=== PATIENT | male | born 1970 | race Two or more races ===

== ENCOUNTER 2021-09-15 03:08 | Inpatient (IN) | payer BC, OTHER ==
[~2021-09-15] VITALS: Ht 177.8 cm; Wt 121.4 kg
[2021-09-15 04:11] LABS: Basophils # (auto) 0 10 ^3/uL (0-0.2); Hematocrit 41.8 % (41.0-53.0); Lymphocytes # (auto) 0.9 10 ^3/uL (0.4-5.4); Monocytes # (auto) 0.3 10 ^3/uL (0-1.3); Monocytes % (auto) 4.2 % (0.0-12.0); Neutrophils # (auto) 5.9 10 ^3/uL (1.6-8.6); Nucleated Red Blood Cells % 0.1 %; Red Cell Distribution Width 15.3 % (11.8-14.3)
[2021-09-15 04:13] LABS: Basophils % (auto) 0.5 % (0.0-2.0); Eosinophils # (auto) 0.2 10 ^3/uL (0-0.8); Eosinophils % (auto) 2.2 % (0.0-7.0); Hemoglobin 13.5 g/dL (13.5-17.5); Lymphocytes % (auto) 12.4 % (10.0-50.0); Mean Corpuscular Hemoglobin 24.6 pg (28.0-32.0); Mean Corpuscular Hgb Conc. 32.3 g/dL (32.0-36.0); Mean Corpuscular Volume 76.3 fL (80.0-100.0); Neutrophils % (auto) 80.7 % (37.0-80.0); Red Blood Cells 5.47 10^6/uL (4.5-5.90); White Blood Cell 7.4 10^3/uL (4.4-10.8)
[2021-09-15 04:22] LABS: Albumin 3.8 g/dL (3.4-5.0); Calcium 8.4 mg/dL (8.5-10.1); Magnesium 3.2 mg/dL (1.6-2.6); Potassium 3.5 mmol/L (3.5-5.1)
[2021-09-15 04:28] LABS: BUN/Creatinine Ratio 15.1; Bilirubin, Total 0.4 mg/dL (0.2-1.0); Total Protein 6.8 g/dL (6.4-8.2)
[2021-09-15] MEDS ORDERED: IOHEXOL 350 MG/ML 100ML IJ ONE (04:50)
[2021-09-15 04:54] LABS: INR 1.08 (0.9-1.15); Partial Thromboplastin Time 26.4 sec (23.6-33.0)
[2021-09-15] MEDS ORDERED: NITROGLYCERIN 0.4MG/HR TOPICAL PATCH TD ONE (05:00)
[2021-09-15] MEDS ORDERED: METOPROLOL TARTRATE 1MG/1ML-5ML VIAL IV ONE (05:00)
[2021-09-15] MEDS ORDERED: ENOXAPARIN SOD 120 MG/0.8 ML SYRINGE SC ONE (05:00)
[2021-09-15 05:03] LABS: Urine Bacteria FEW /hpf (None Seen); Urine Blood Negative /uL (Negative); Urine Hyaline Cast FEW /lpf (0 - 2); Urine Mucus FEW (None Seen); Urine Specific Gravity 1.008 (1.001-1.035); Urine WBC 2 /hpf (0 - 3)
[2021-09-15] MEDS ORDERED: ONDANSETRON HCL 4 MG/2 ML VIAL IV PRN ×2 (06:00→13:15)
[2021-09-15] MEDS: D5W/SOD CHLO 0.9% 1,000 ML IV SCH ×2 (06:30→21:24)
[2021-09-15] MEDS: ASPirin 81 mg TAB PO SCH (09:44)
[2021-09-15] MEDS: METOPROLOL SUCCINATE XL 50 MG TAB PO SCH (09:45)
[2021-09-15] MEDS: cloNIDine HCL 0.1 MG TAB PO SCH ×2 (09:48→22:00)
[2021-09-15] MEDS ORDERED: ENOXAPARIN SOD 40 MG/0.4 ML SYRINGE SC SCH (10:00)
[2021-09-15] MEDS ORDERED: LISINOPRIL 20 MG TAB PO ONE (13:00)
[2021-09-15] MEDS: MORPHINE SULFATE 4 MG/ML SYR/VIAL IV PRN (13:42)
[2021-09-15] MEDS ORDERED: IODIXANOL 320MG/ML 100ML BTL IV ONE (15:17)
[2021-09-15] MEDS ORDERED: LIDOCAINE 2%HCL (LOCAL ANESTH.) INJ 20ML MDV ONE (15:17)
[2021-09-15] MEDS ORDERED: ANGIOMAX 250 MG VIAL IV ONE (15:18)
[2021-09-15] MEDS ORDERED: SODIUM CHL 0.9% 0 ML ONE (15:18)
[2021-09-15] MEDS ORDERED: MIDAZOLAM HCL 2MG/2ML 2ml VIAL (1mg/ml) ONE (15:18)
[2021-09-15] MEDS ORDERED: fentaNYL CITRATE 100 MCG/2 ML VL ONE (15:18)
[2021-09-15] MEDS ORDERED: NITROGLYCERIN 0.4MG/DOSE SPRAY 4.9GM ONE (15:57)
[2021-09-15] MEDS: hydrALAZINE HCL 20 MG/ML VL IV PRN (16:55)
[2021-09-15 18:30] VITALS: BP 152/93
[2021-09-15] MEDS ORDERED: METO25TA93 PO (21:34)
[2021-09-15] MEDS ORDERED: CLON0.2T PO (21:34)
[2021-09-15] MEDS: SODIUM CHLOR 0.9% PF (SALINE LOCK) 10ML VIAL/SYR IV SCH (21:59)
[2021-09-15 22:00] VITALS: BP 166/99
[2021-09-15] MEDS: ENOXAPARIN SOD 120 MG/0.8 ML SYRINGE SC SCH (22:01)
[2021-09-15] MEDS: SACUBITRIL-VALSARTAN 24mg/26mg TAB PO SCH (22:01)
[2021-09-15] MEDS: ATORVASTATIN 20 MG TAB PO SCH (22:01)
[2021-09-16 04:00] VITALS: BP 146/76
[2021-09-16] MEDS: SODIUM CHLOR 0.9% PF (SALINE LOCK) 10ML VIAL/SYR IV SCH ×3 (05:33→21:41)
[2021-09-16] MEDS: D5W/SOD CHLO 0.9% 1,000 ML IV SCH (05:45)
[2021-09-16 07:18] LABS: Basophils # (auto) 0 10 ^3/uL (0-0.2); Eosinophils # (auto) 0.4 10 ^3/uL (0-0.8); Hemoglobin 13.9 g/dL (13.5-17.5); Mean Corpuscular Volume 76.2 fL (80.0-100.0); Neutrophils # (auto) 5.6 10 ^3/uL (1.6-8.6)
[2021-09-16 07:23] LABS: Basophils % (auto) 0.4 % (0.0-2.0); Eosinophils % (auto) 5.1 % (0.0-7.0); Hematocrit 42.6 % (41.0-53.0); Lymphocytes # (auto) 1.4 10 ^3/uL (0.4-5.4); Lymphocytes % (auto) 17.5 % (10.0-50.0); Mean Corpuscular Hemoglobin 24.9 pg (28.0-32.0); Mean Corpuscular Hgb Conc. 32.7 g/dL (32.0-36.0); Monocytes # (auto) 0.8 10 ^3/uL (0-1.3); Monocytes % (auto) 9.4 % (0.0-12.0); Neutrophils % (auto) 67.6 % (37.0-80.0); Nucleated Red Blood Cells % 0.1 %; Red Blood Cells 5.59 10^6/uL (4.5-5.90); White Blood Cell 8.2 10^3/uL (4.4-10.8)
[2021-09-16 07:45] LABS: Albumin 3.5 g/dL (3.4-5.0); BUN/Creatinine Ratio 11.8; Bilirubin, Total 0.8 mg/dL (0.2-1.0); Calcium 8.4 mg/dL (8.5-10.1); Total Protein 6.8 g/dL (6.4-8.2)
[2021-09-16 08:20] VITALS: BP 157/108
[2021-09-16] MEDS: cloNIDine HCL 0.1 MG TAB PO SCH ×2 (09:46→21:44)
[2021-09-16] MEDS: SACUBITRIL-VALSARTAN 24mg/26mg TAB PO SCH ×2 (09:46→21:44)
[2021-09-16] MEDS: METOPROLOL SUCCINATE XL 50 MG TAB PO SCH (09:47)
[2021-09-16] MEDS: ASPirin 81 mg TAB PO SCH (09:47)
[2021-09-16] MEDS: ENOXAPARIN SOD 120 MG/0.8 ML SYRINGE SC SCH ×2 (09:48→21:45)
[2021-09-16] MEDS ORDERED: LISINOPRIL 20 MG TAB PO SCH (10:00)
[2021-09-16 12:20] VITALS: BP 136/86
[2021-09-16 16:35] VITALS: BP 142/96
[2021-09-16] MEDS: ATORVASTATIN 20 MG TAB PO SCH (21:45)
[2021-09-16 22:00] VITALS: BP 157/106
[2021-09-17] MEDS: D5W/SOD CHLO 0.9% 1,000 ML IV SCH (04:12)
[2021-09-17 05:00] VITALS: BP 180/87
[2021-09-17] MEDS: hydrALAZINE HCL 20 MG/ML VL IV PRN (06:02)
[2021-09-17] MEDS: SODIUM CHLOR 0.9% PF (SALINE LOCK) 10ML VIAL/SYR IV SCH (06:03)
[2021-09-17] MEDS: NITROGLYCERIN 0.4 MG SL TAB SL PRN ×2 (07:05→07:10)
[2021-09-17] MEDS: MORPHINE SULFATE 4 MG/ML SYR/VIAL IV PRN (07:05)
[2021-09-17 07:15] VITALS: BP 117/75
[2021-09-17 08:00] VITALS: BP 144/96
[2021-09-17] MEDS: cloNIDine HCL 0.1 MG TAB PO SCH (09:47)
[2021-09-17] MEDS: SACUBITRIL-VALSARTAN 24mg/26mg TAB PO SCH (09:47)
[2021-09-17] MEDS: ENOXAPARIN SOD 120 MG/0.8 ML SYRINGE SC SCH (09:48)
[2021-09-17] MEDS: ASPirin 81 mg TAB PO SCH (09:48)
[2021-09-17] MEDS: METOPROLOL SUCCINATE XL 50 MG TAB PO SCH (09:48)
[2021-09-17] MEDS ORDERED: SACU1TAB PO (11:37)
[2021-09-17] MEDS ORDERED: ASPI-498 OR (11:37)
[2021-09-17] MEDS ORDERED: ATO40T PO (11:37)
[2021-09-17] MEDS ORDERED: METO-6 PO (11:39)
[2021-09-17 12:00] VITALS: BP 141/88
[2021-09-17 12:33] VITALS: BP 141/88
== END 2021-09-17 13:30 | disposition home or self-care (01) | DRG 280 ==
LOC: ER 03:08 → EDBD 03:08 → TELE 05:50 → TELE-WESTW 17:50
PROVIDERS: ADMIT Nurse Practitioner; ATTEND Family Medicine
PROC: 4A023N7 Measurement of Cardiac Sampling and Pressure, Left Heart, Percutaneous Approach (ICD-10-PCS; principal; 2021-09-15)
PROC: B211YZZ Fluoroscopy of Multiple Coronary Arteries using Other Contrast (ICD-10-PCS; 2021-09-15)
PROC: B215YZZ Fluoroscopy of Left Heart using Other Contrast (ICD-10-PCS; 2021-09-15)
DX: I21.4 Non-ST elevation (NSTEMI) myocardial infarction (principal); I50.31 Acute diastolic (congestive) heart failure; I47.1 Supraventricular tachycardia; E27.8 Other specified disorders of adrenal gland; I27.20 Pulmonary hypertension, unspecified; E66.01 Morbid (severe) obesity due to excess calories; I11.0 Hypertensive heart disease with heart failure; I48.91 Unspecified atrial fibrillation; Z20.822 Contact with and (suspected) exposure to COVID-19; Z68.38 Body mass index [BMI] 38.0-38.9, adult; Z86.711 Personal history of pulmonary embolism; Z86.718 Personal history of other venous thrombosis and embolism; Z79.01 Long term (current) use of anticoagulants; Z88.5 Allergy status to narcotic agent
CPT/HCPCS: 36415; 71045; 71275; 80053; 81001; 83735; 83880; 84484; 85025; 85610; 85730; 87426; 93005; 93306; 93458; 96365; 96372; 99152; 99291; G0378; J2250; J2405; J7042; Q9967

== ENCOUNTER 2021-10-04 05:45 | Inpatient (IN) | payer BC ==
[~2021-10-04] VITALS: Ht 177.8 cm; Wt 116.1 kg
[~2021-10-04 05:45] MED LIST: ASPI-498 OR; ATO40T PO; CLON0.2T PO; METO-6 PO; METO25TA93 PO; SACU1TAB PO
[2021-10-04 06:12] LABS: Basophils # (auto) 0 10 ^3/uL (0-0.2); Eosinophils # (auto) 0.3 10 ^3/uL (0-0.8); Hemoglobin 13.7 g/dL (13.5-17.5); Lymphocytes # (auto) 0.9 10 ^3/uL (0.4-5.4); Mean Corpuscular Volume 77.6 fL (80.0-100.0); Monocytes # (auto) 0.4 10 ^3/uL (0-1.3); Neutrophils # (auto) 4.7 10 ^3/uL (1.6-8.6); Red Cell Distribution Width 16.9 % (11.8-14.3)
[2021-10-04 06:13] LABS: Basophils % (auto) 0.6 % (0.0-2.0); Eosinophils % (auto) 4.2 % (0.0-7.0); Hematocrit 40.1 % (41.0-53.0); Lymphocytes % (auto) 14.2 % (10.0-50.0); Mean Corpuscular Hemoglobin 26.6 pg (28.0-32.0); Mean Corpuscular Hgb Conc. 34.2 g/dL (32.0-36.0); Monocytes % (auto) 5.7 % (0.0-12.0); Neutrophils % (auto) 75.3 % (37.0-80.0); Red Blood Cells 5.16 10^6/uL (4.5-5.90); White Blood Cell 6.2 10^3/uL (4.4-10.8)
[2021-10-04 06:25] LABS: Albumin 3.7 g/dL (3.4-5.0); Potassium 3.2 mmol/L (3.5-5.1)
[2021-10-04 06:31] LABS: BUN/Creatinine Ratio 14.7; Bilirubin, Total 0.5 mg/dL (0.2-1.0); Total Protein 6.4 g/dL (6.4-8.2)
[2021-10-04] MEDS ORDERED: SODIUM CHLORIDE 0.9% 1,000 ML IV ONE (06:45)
[2021-10-04 07:05] LABS: Urine Amorphous Crystal FEW /hpf (None Seen); Urine Bacteria FEW /hpf (None Seen); Urine Blood Negative /uL (Negative); Urine Hyaline Cast FEW /lpf (0 - 2); Urine Mucus FEW (None Seen); Urine Specific Gravity 1.005 (1.001-1.035); Urine WBC 5 /hpf (0 - 3)
[2021-10-04 07:06] LABS: INR 1.1 (0.9-1.15); Partial Thromboplastin Time 25.9 sec (23.6-33.0)
[2021-10-04] MEDS ORDERED: POTASSIUM EFFERVESENT TAB 25 MEQ PO ONE (07:15)
[2021-10-04] MEDS ORDERED: MORPHINE SULFATE INJECTION 2 MG/ML SYRG IV PRN (10:15)
[2021-10-04] MEDS ORDERED: ONDANSETRON HCL 4 MG/2 ML VIAL IV PRN (10:15)
[2021-10-04] MEDS ORDERED: FAMOTIDINE (10MG/ML) 2ML VL IV ONE (10:15)
[2021-10-04] MEDS ORDERED: IPRATROPIUM BROM 0.5 MG/2.5ML INH SOL NEB ONE (10:15)
[2021-10-04] MEDS ORDERED: METOPROLOL SUCCINATE XL 50 MG TAB PO ONE (10:15)
[2021-10-04] MEDS ORDERED: BENAZEPRIL HCL 10 MG TAB PO ONE (10:15)
[2021-10-04] MEDS ORDERED: NITROGLYCERIN 0.4 MG SL TAB SL PRN (10:15)
[2021-10-04] MEDS ORDERED: LORazepam 0.5 MG TAB PO PRN (10:15)
[2021-10-04] MEDS ORDERED: MAGNESIUM SULFATE 1GM/100ML 100 ML IV ONE (10:15)
[2021-10-04] MEDS ORDERED: cefTRIAXone 1GM/50ML D5W 50 ML IV ONE (10:15)
[2021-10-04] MEDS ORDERED: HYDROcodone-ACET 5/325MG TAB PO PRN ×2 (10:15)
[2021-10-04] MEDS ORDERED: DOCUSATE SOD 100 MG CAP PO PRN (10:15)
[2021-10-04] MEDS ORDERED: hydrALAZINE HCL 20 MG/ML VL IV PRN (10:15)
[2021-10-04] MEDS ORDERED: LACTULOSE 20Gm/30ML SOLN PO PRN (10:15)
[2021-10-04] MEDS: SODIUM CHLORIDE 0.9% 1,000 ML IV SCH (10:25)
[2021-10-04] MEDS ORDERED: HYDROcodone-ACET 5/325MG TAB PO ONE (10:30)
[2021-10-04 10:47] VITALS: BP 149/102
[2021-10-04] MEDS ORDERED: IPRATROPIUM BROM 0.5 MG/2.5ML INH SOL NEB PRN (11:00)
[2021-10-04 12:15] LABS: INR 1.08 (0.9-1.15)
[2021-10-04 12:26] LABS: Magnesium 2.2 mg/dL (1.6-2.6); Phosphorus 3.1 mg/dL (2.5-4.90)
[2021-10-04] MEDS: APIXABAN 5 MG TAB PO SCH ×2 (13:10→21:51)
[2021-10-04] MEDS ORDERED: IPRATROPIUM BROM 0.5 MG/2.5ML INH SOL NEB SCH (14:00)
[2021-10-04] MEDS: FUROSEMIDE 40 MG/4 ML VIAL IV SCH (18:16)
[2021-10-04 21:27] VITALS: BP 141/91
[2021-10-04] MEDS: ISOSORBIDE MONONITRATE 20 MG TAB PO SCH (21:52)
[2021-10-04] MEDS: POTASSIUM CHL 20 Meq TABLET PO SCH (21:52)
[2021-10-04 22:00] VITALS: BP 141/91
[2021-10-04] MEDS: MORPHINE SULFATE INJECTION 2 MG/ML SYRG IV PRN (22:07)
[2021-10-04] MEDS ORDERED: AMLO-489 PO (22:11)
[2021-10-04] MEDS ORDERED: OME20T PO (23:34)
[2021-10-05] MEDS: SODIUM CHLORIDE 0.9% 1,000 ML IV SCH (02:49)
[2021-10-05 03:28] LABS: Alcohol, Urine < 3.0 mg/dL (0-10); Amphetamine Screen, Urine POSITIVE (NEGATIVE); Barbiturate Scree,Urine NEGATIVE (NEGATIVE); Benzodiazephine Screen, Urine POSITIVE (NEGATIVE); Cocaine Screen, Urine NEGATIVE (NEGATIVE); Opiate Scree,Urine NEGATIVE (NEGATIVE); Phencyclidine Screen, Urine NEGATIVE (NEGATIVE)
[2021-10-05 03:36] LABS: Cannabinoid Screen, Urine POSITIVE (NEGATIVE)
[2021-10-05 05:00] VITALS: BP 134/75
[2021-10-05] MEDS: FUROSEMIDE 40 MG/4 ML VIAL IV SCH (05:02)
[2021-10-05] MEDS: MORPHINE SULFATE INJECTION 2 MG/ML SYRG IV PRN (05:03)
[2021-10-05 06:57] LABS: Basophils # (auto) 0 10 ^3/uL (0-0.2); Basophils % (auto) 0.7 % (0.0-2.0); Eosinophils # (auto) 0.5 10 ^3/uL (0-0.8); Eosinophils % (auto) 7.6 % (0.0-7.0); Hematocrit 42.9 % (41.0-53.0); Hemoglobin 14.4 g/dL (13.5-17.5); Lymphocytes # (auto) 1.6 10 ^3/uL (0.4-5.4); Lymphocytes % (auto) 23.6 % (10.0-50.0); Mean Corpuscular Hgb Conc. 33.7 g/dL (32.0-36.0); Mean Corpuscular Volume 77.3 fL (80.0-100.0); Monocytes # (auto) 0.5 10 ^3/uL (0-1.3); Monocytes % (auto) 7.8 % (0.0-12.0); Neutrophils % (auto) 60.3 % (37.0-80.0); Nucleated Red Blood Cells % 0.1 %; Red Blood Cells 5.55 10^6/uL (4.5-5.90); Red Cell Distribution Width 16.9 % (11.8-14.3); White Blood Cell 6.7 10^3/uL (4.4-10.8)
[2021-10-05 07:13] LABS: Albumin 3.5 g/dL (3.4-5.0); Calcium 8.7 mg/dL (8.5-10.1); Magnesium 2.3 mg/dL (1.6-2.6)
[2021-10-05 07:18] LABS: INR 1.1 (0.9-1.15); Partial Thromboplastin Time 30.6 sec (23.6-33.0)
[2021-10-05 08:00] LABS: Bilirubin, Total 0.6 mg/dL (0.2-1.0); CRP High Sensitivity 0.5 mg/dL (< 0.3); Phosphorus 3.6 mg/dL (2.5-4.90); Total Protein 6.6 g/dL (6.4-8.2)
[2021-10-05 08:17] LABS: Potassium 2.9 mmol/L (3.5-5.1)
[2021-10-05 09:00] VITALS: BP 148/90
[2021-10-05] MEDS ORDERED: cefTRIAXone 1GM/50ML D5W 50 ML IV SCH (09:00)
[2021-10-05] MEDS: POTASSIUM CHL 20 Meq TABLET PO SCH (09:35)
[2021-10-05] MEDS: ISOSORBIDE MONONITRATE 20 MG TAB PO SCH (09:36)
[2021-10-05] MEDS: APIXABAN 5 MG TAB PO SCH (09:37)
[2021-10-05] MEDS ORDERED: METOPROLOL SUCCINATE XL 50 MG TAB PO SCH ×2 (10:00)
[2021-10-05] MEDS ORDERED: ASPirin 81 mg TAB PO SCH (10:00)
[2021-10-05] MEDS ORDERED: BENAZEPRIL HCL 10 MG TAB PO SCH ×2 (10:00)
[2021-10-05] MEDS ORDERED: ENOXAPARIN SOD 40 MG/0.4 ML SYRINGE SC SCH (10:00)
[2021-10-05] MEDS ORDERED: FAMOTIDINE (10MG/ML) 2ML VL IV SCH (10:00)
[2021-10-05] MEDS ORDERED: MORPHINE SULFATE INJECTION 2 MG/ML SYRG IV PRN ×3 (10:15→10:45)
[2021-10-05] MEDS: POTASSIUM CHL 10MEQ/50ML 50 ML IV SCH ×2 (11:00→11:06)
[2021-10-05 13:00] VITALS: BP 138/79
[2021-10-05] MEDS ORDERED: SACUBITRIL-VALSARTAN 24mg/26mg TAB PO SCH (22:00)
== END 2021-10-05 16:40 | disposition left against medical advice (07) | DRG 280 ==
LOC: ER 05:45 → EDBD 05:45 → TELE 10:05 → TELE-WESTW 21:27
PROVIDERS: ADMIT Hospitalist; ATTEND Hospitalist
DX: I21.4 Non-ST elevation (NSTEMI) myocardial infarction (principal); I50.33 Acute on chronic diastolic (congestive) heart failure; I47.1 Supraventricular tachycardia; N39.0 Urinary tract infection, site not specified; I82.501 Chronic embolism and thrombosis of unspecified deep veins of right lower extremity; E66.01 Morbid (severe) obesity due to excess calories; E78.5 Hyperlipidemia, unspecified; E83.42 Hypomagnesemia; E87.6 Hypokalemia; E89.0 Postprocedural hypothyroidism; F12.90 Cannabis use, unspecified, uncomplicated; F17.210 Nicotine dependence, cigarettes, uncomplicated; I11.0 Hypertensive heart disease with heart failure; I16.0 Hypertensive urgency; I48.91 Unspecified atrial fibrillation; Z20.822 Contact with and (suspected) exposure to COVID-19; R53.81 Other malaise; Z79.01 Long term (current) use of anticoagulants; Z79.899 Other long term (current) drug therapy; Z80.1 Family history of malignant neoplasm of trachea, bronchus and lung; Z68.36 Body mass index [BMI] 36.0-36.9, adult; Z80.3 Family history of malignant neoplasm of breast; Z80.51 Family history of malignant neoplasm of kidney; Z86.711 Personal history of pulmonary embolism; Z91.19 Patient's noncompliance with other medical treatment and regimen; Z88.5 Allergy status to narcotic agent
CPT/HCPCS: 36415; 71045; 73630; 80053; 80061; 80307; 81001; 82728; 83036; 83735; 83880; 84100; 84443; 84484; 84550; 85025; 85379; 85610; 85730; 86141; 87040; 87081; 87086; 87426; 93005; 94640; 96361; 96365; 96368; 96375; G0378; J0696; J3490